=== PATIENT | male | born 1975 | race Caucasian/White ===

== ENCOUNTER 2022-07-07 19:06 | Emergency (ER) | payer BC, OTHER ==
[2022-07-07 19:53] VITALS: BP 170/95; PULSE 86; RESP 17; TEMP 99.1; BMI 39.0
[2022-07-07] MEDS ORDERED: IBUPROFEN 400 MG TABLET (FP) PO ONE ×2 (21:39→21:43)
== END 2022-07-07 23:19 | disposition home or self-care (01) ==
LOC: JER 19:06
DX: U07.1 COVID-19 (principal); M79.652 Pain in left thigh
CPT/HCPCS: 93005; 93010; 93971-TC; 99284-25